=== PATIENT | female | born 1955 | race Caucasian/White ===

== ENCOUNTER → 2017-06-27 | Outpatient (CLI) | payer OTHER ==
--- NOTE | 2017-06-30 15:30 | Diagnostic Imaging Report ---
EXAMINATION: Bilateral screening mammogram 2D views with tomosynthesis. The current study was also evaluated with a Computer Aided Detection (CAD) system. INDICATION: Screening. PERSONAL HISTORY: No current complaints stated on the questionnaire. COMPARISON: 06/14/2016. FINDINGS: The breasts are composed of scattered fibroglandular densities. There is no mass, architectural distortion, or suspicious cluster of calcifications seen. Allowing for technique and positional differences, no suspicious change is seen. IMPRESSION: No significant change. ACR BI-RADS Category 2: Benign findings. Result letter will be mailed to the patient. Note: At least 10% of breast cancer is not imaged by mammography. Dictated by: Dictated on workstation # [id number]
== END ==
LOC: RAD 09:57
DX: Z12.31 Encounter for screening mammogram for malignant neoplasm of breast (principal)
CPT/HCPCS: 77067

== ENCOUNTER → 2018-07-13 | Outpatient (CLI) | payer OTHER ==
--- NOTE | 2018-07-13 13:00 | Diagnostic Imaging Report ---
INDICATION: Screening. TECHNIQUE: The current study was also evaluated with a Computer Aided Detection (CAD) system. 3D tomosynthesis was also performed and reviewed. COMPARISON: 06/27/2017 back through 05/06/2012. FINDINGS: There are scattered fibroglandular densities bilaterally. There is no dominant mass, spiculated lesion, or suspicious calcification identified. The skin, nipples, and axillae are unremarkable. IMPRESSION: Negative. ACR BI-RADS Category 1: Negative. Result letter will be mailed to the patient. Note: At least 10% of breast cancer is not imaged by mammography. Dictated by: Dictated on workstation # [id number]
== END ==
LOC: RAD 07:50
DX: Z12.31 Encounter for screening mammogram for malignant neoplasm of breast (principal)
CPT/HCPCS: 77067

== ENCOUNTER → 2019-07-21 | Outpatient (CLI) | payer OTHER ==
--- NOTE | 2019-07-21 10:55 | Diagnostic Imaging Report ---
INDICATION: Routine screening. COMPARISON: 07/13/2018 and 06/27/2017. TECHNIQUE: 2D and 3D bilateral screening mammography was performed with CAD. FINDINGS: Scattered fibroglandular densities are identified bilaterally. The parenchymal pattern is stable. No mass or malignant appearing microcalcifications are seen. The axillae are unremarkable. IMPRESSION: No mammographic features suspicious for malignancy are identified. ACR BI-RADS Category 1: Negative. Result letter will be mailed to the patient. Note: At least 10% of breast cancer is not imaged by mammography. Dictated by: Dictated on workstation # [id number]
== END ==
LOC: RAD 09:37
PROVIDERS: ATTEND Nurse Practitioner Family
DX: Z12.31 Encounter for screening mammogram for malignant neoplasm of breast (principal)
CPT/HCPCS: 77067

== ENCOUNTER → 2020-08-11 | Outpatient (CLI) | payer MEDICARE, OTHER ==
--- NOTE | 2020-08-11 11:32 | Diagnostic Imaging Report ---
INDICATION: Routine screening. Comparison is made to prior mammogram 07/21/2019 and 07/13/2018. 2-D and 3-D bilateral screening mammography was performed with CAD. Both breasts are heterogeneously dense, limiting the sensitivity of mammography. The parenchymal pattern is stable. No mass or malignant-appearing microcalcifications are seen. Axillae are unremarkable. IMPRESSION: BI-RADS Category 1 No mammographic features suspicious for malignancy are identified. ACR BI-RADS Category 1: Negative. Result letter will be mailed to the patient. Note: At least 10% of breast cancer is not imaged by mammography. Dictated by: Dictated on workstation # [id number]
== END ==
LOC: RAD 08:11
DX: Z12.31 Encounter for screening mammogram for malignant neoplasm of breast (principal)
CPT/HCPCS: 77063; 77067

== ENCOUNTER → 2021-08-27 | Outpatient (CLI) | payer MEDICARE, OTHER ==
--- NOTE | 2021-08-27 09:03 | Diagnostic Imaging Report ---
INDICATION: Routine screening. Comparison is made prior mammogram from 08/11/2020 and 07/21/2019. 2-D and 3-D bilateral screening mammography was performed with CAD. Both breasts are heterogeneously dense, limiting the sensitivity of mammography. A slightly nodular density in the inferior retroareolar left breast appears more prominent on today's study. Additional views are recommended. The right breast is unremarkable. No malignant-appearing microcalcifications are seen. Axillae are unremarkable. IMPRESSION: Left breast density. Additional views are recommended for further evaluation. BI-RADS Category 0 ACR BI-RADS Category 0: Incomplete. (Needs additional imaging evaluation). Result letter will be mailed to the patient. Note: At least 10% of breast cancer is not imaged by mammography. Dictated by: Dictated on workstation # [id number]
== END ==
LOC: RAD 08:15
DX: Z12.31 Encounter for screening mammogram for malignant neoplasm of breast (principal)
CPT/HCPCS: 77063; 77067

== ENCOUNTER → 2021-09-04 | Outpatient (CLI) | payer MEDICARE, OTHER ==
--- NOTE | 2021-09-04 13:32 | Diagnostic Imaging Report ---
EXAMINATION: Ultrasound left breast limited. INDICATION: Abnormal mammogram. FINDINGS: The recent screening mammogram performed on 08/27/2021 noted a slightly nodular density in the inferior retroareolar region of the left breast. The diagnostic mammogram performed prior to the study failed to show any sign of malignancy in this area. On this exam, however, there is a small 6 x 5 x 3 mm avascular hypoechoic lesion in the retroareolar region of the left breast. I suspect that this corresponds to the finding on the mammogram and this may well represent a small slightly complicated cyst. I would recommend that a short-term (6 month) followup mammogram and ultrasound exam of the left breast be obtained for continued evaluation. IMPRESSION: The small nodular density seen on the screening mammogram is felt to be most likely related to a small complicated cyst. Recommendations as above. ACR BI-RADS Category 3: Probably benign findings. Dictated by: Dictated on workstation # [id number]
--- NOTE | 2021-09-04 15:26 | Diagnostic Imaging Report ---
EXAMINATION: Diagnostic left mammogram with CAD. INDICATION: Abnormal screening mammogram. FINDINGS: The recent screening mammogram performed on 08/27/2021 noted a small nodular density in the inferior retroareolar region of the left breast. Compression views of this area show that the area in question is not as conspicuous as on the screening mammogram. This finding may be secondary to fibroglandular tissue alone. Even so, the possibility of an underlying abnormality should still be considered. Ultrasound would be recommended for further study. IMPRESSION: Ultrasound would be recommended for further evaluation of the left breast. ACR BI-RADS Category 0: Incomplete. (Needs additional imaging evaluation). Result letter will be mailed to the patient. Note: At least 10% of breast cancer is not imaged by mammography. Dictated by: Dictated on workstation # [id number]
== END ==
LOC: RAD 12:30
DX: R92.8 Other abnormal and inconclusive findings on diagnostic imaging of breast (principal); Z85.3 Personal history of malignant neoplasm of breast
CPT/HCPCS: 76642; 77065; G0279

== ENCOUNTER → 2022-02-06 | Outpatient (CLI) | payer MEDICARE, OTHER ==
--- NOTE | 2022-02-06 09:33 | Diagnostic Imaging Report ---
Indication: Six-month follow-up left breast nodule. Correlation is made with prior mammogram from 08/27/2021 and 08/11/2020. Unilateral left 2-D and 3-D diagnostic mammography was performed with CAD. CAD is utilized. The current study was also evaluated with a Computer Aided Detection (CAD) system. Scattered fibro-glandular densities are identified in the left breast. The nodular density in the lower left breast appears less prominent on today's study. This was shown by ultrasound to represent a cyst. No new masses are seen. No malignant-appearing microcalcifications are identified. Left axilla is unremarkable. IMPRESSION: BI-RADS 0 Nodular density noted previously appears much less prominent on today's study, likely diminution of a cyst. Even so, sonographic follow-up is recommended and will be performed today. ACR BI-RADS Category 0: Incomplete. (Needs additional imaging evaluation). Result letter will be mailed to the patient. Note: At least 10% of breast cancer is not imaged by mammography. Dictated by: Dictated on workstation # [id number]
--- NOTE | 2022-02-06 10:39 | Diagnostic Imaging Report ---
INDICATION: Left breast nodule. COMPARISON: Correlation is made with the diagnostic mammogram from earlier this same day as well as a prior left breast ultrasound from 09/04/2021. FINDINGS: Sonographic interrogation of the retroareolar left breast was performed. The previously noted ovoid, hypoechoic avascular echogenicity is stable at 6 mm x 6 mm x 2 mm compared with 6 mm x 5 mm x 3 mm on the prior exam. No new mass is detected. IMPRESSION: Stable hypoechoic nodule in the retroareolar left breast. An additional followup in 6 months is recommended to show continued stability. ACR BI-RADS Category 3: Probably benign findings. Dictated by: Dictated on workstation # [id number]
== END ==
LOC: RAD 09:15
DX: N63.20 Unspecified lump in the left breast, unspecified quadrant (principal); Z85.3 Personal history of malignant neoplasm of breast
CPT/HCPCS: 76642; 77065; G0279

== ENCOUNTER → 2022-09-03 | Outpatient (CLI) | payer MEDICARE, OTHER ==
--- NOTE | 2022-09-03 10:07 | Diagnostic Imaging Report ---
Left breast ultrasound Limited. INDICATION: Follow-up exam The previous left breast ultrasound exam performed on 02/06/2022 noted a stable hypoechoic nodule in the retroareolar region of the left breast. On the diagnostic mammogram performed prior to this study the area in question actually seem to have decreased in size. On this exam the hypoechoic lesion has in fact become smaller. This area now measures 0.1 x 0.2 x 0.5 cm as opposed to 0.6 x 0.2 x 0.6 cm. I do suspect that this is a benign process. Even so, it may prove worthwhile to reevaluate this area by ultrasound when the patient has her annual mammogram in February 2023. No other abnormality is identified. IMPRESSION: The hypoechoic lesion seen previously has decreased in size and is most likely a benign process. Recommendations as above. ACR BI-RADS Category 3: Probably benign findings. Dictated by: Dictated on workstation # [id number]
--- NOTE | 2022-09-04 08:48 | Diagnostic Imaging Report ---
EXAMINATION: 3D bilateral diagnostic mammogram with CAD. INDICATION: Followup exam. COMPARISON: This study was compared to the prior exams of 02/06/2022, 08/27/2021, 08/11/2020, and 07/21/2019. PERSONAL HISTORY: At this time, there are no current complaints. FINDINGS: There are scattered fibroglandular densities in both breasts which could obscure a lesion. The previous exam of 02/06/2022 did note a small nodular density in the left retroareolar region. The ultrasound examination of this area suggests that this was a benign hypoechoic nodule. On this exam, the nodular density in question is less conspicuous. A repeat ultrasound exam is pending for further study. The overall appearance of the breasts has not changed significantly otherwise. There is no primary or secondary sign of malignancy noted. IMPRESSION: 1. The small nodular density in the retroareolar region of the left breast seen previously is not as conspicuous on this study. Ultrasound is pending for further study. 2. There is no primary or secondary sign of malignancy noted otherwise. ACR BI-RADS Category 0: Incomplete. (Needs additional imaging evaluation). Result letter will be mailed to the patient. Note: At least 10% of breast cancer is not imaged by mammography. Dictated by: Dictated on workstation # [id number]
== END ==
LOC: RAD 08:32
PROVIDERS: ATTEND Internal Medicine
DX: R92.2 Inconclusive mammogram (principal)
CPT/HCPCS: 76642; 77066; G0279; 77062

== ENCOUNTER → 2023-03-19 | Outpatient (CLI) | payer MEDICARE, OTHER ==
--- NOTE | 2023-03-19 11:18 | Diagnostic Imaging Report ---
Indication: 6 month follow-up left breast nodule. Correlation is made with prior ultrasound from 09/03/2022. Sonographic interrogation retroareolar left breast was performed. Previously noted hypoechoic nodule is no longer visualized. No sonographic abnormality is detected. No solid or cystic mass is detected. IMPRESSION: BI-RADS Category 1 Previously noted tiny hypoechoic nodule is no longer present. No new abnormality is identified. The patient may return to routine annual screening mammography. ACR BI-RADS Category 1: Negative. Dictated by: Dictated on workstation # [id number]
== END ==
LOC: RAD 09:40
PROVIDERS: ATTEND Internal Medicine
DX: N63.20 Unspecified lump in the left breast, unspecified quadrant (principal)

== ENCOUNTER → 2023-09-09 | Outpatient (CLI) | payer MEDICARE, OTHER ==
--- NOTE | 2023-09-09 15:46 | Diagnostic Imaging Report ---
EXAMINATION: 3D bilateral screening mammogram with CAD. INDICATION: Screening. COMPARISON: This study was compared to the prior exams of 09/03/2022, 08/27/2021, and 08/11/2020. PERSONAL HISTORY: At this time, there are no current complaints. FINDINGS: There are scattered areas of fibroglandular density. Overall, there does not appear to have been any significant change when compared to the prior exam. There is no primary or secondary sign of malignancy noted. IMPRESSION: There is no radiographic evidence for malignancy. ACR BI-RADS Category 1: Negative. Result letter will be mailed to the patient. Note: At least 10% of breast cancer is not imaged by mammography. Dictated by: Dictated on workstation # [id number]
--- NOTE | 2023-09-11 13:50 | Diagnostic Imaging Report ---
INDICATION: Postmenopausal screening COMPARISON: None FINDINGS: AP Spine L1-L4: [BMD (g/cm2): 0.839] [T-Score: -3.0] [Z-Score: -1.2] [BMD Previous: NA] [BMD % Change: NA] LT Hip Neck: [BMD (g/cm2): 0.681] [T-Score: -2.9] [Z-Score: -0.9] LT Hip Total: [BMD (g/cm2):0.708] [T-Score:-2.4] [Z-Score: -0.9] [BMD Previous: NA] [BMD % Change: NA] RT Hip Neck: [BMD (g/cm2):0.691] [T-Score:-2.5] [Z-Score:-0.8] RT Hip Total: [BMD (g/cm2):0.675] [T-score:-2.6] [Z-Score:-1.2] [BMD Previous:NA] [BMD % Change:NA] *Indicates significant change from prior examination based on 95% confidence level. World Health Organization criteria for BMD interpretation classify patients as Normal (T-score at or above -1.0), Osteopenic (T-score between -1.0 and -2.5) or Osteoporotic (T-score at or below -2.5). LIMITATIONS AND MODIFICATION: None. FRACTURE RISK (FRAX SCORE): The ten year probability of (%): Major Osteoporotic Fracture: [14.0] Hip Fracture: [3.6] IMPRESSION: 1. Osteoporosis. 2. Baseline examination. 3. See below National Osteoporosis Foundation guidelines on when to potentially initiate pharmacologic therapy. Based on the National Osteoporosis Foundation Guidelines, pharmacologic treatment should be initiated in any of the following, unless clinical conditions suggest otherwise: * Any patient with prior fragility fracture of the hip or vertebrae. A spine fracture indicates 5X risk for subsequent spine fracture and 2X risk for subsequent hip fracture. * Osteoporosis (T-score <-2.5). * Postmenopausal women and men age 50 and older with low bone mass/osteopenia (T-score between -1.0 and -2.5) by DXA and 10-year major osteoporotic fracture greater than 20% or a 10-year probability of hip fracture greater than 3%. These fracture risks are supplied above in the FRAX score, if applicable. * Clinician judgement and/or patient preferences may indicate treatment for people with 10-year fracture probabilities above or below these levels. Dictated by: Dictated on workstation # [id number]
== END ==
LOC: RAD 08:07
PROVIDERS: ATTEND Internal Medicine
DX: Z12.31 Encounter for screening mammogram for malignant neoplasm of breast (principal)
CPT/HCPCS: 77063; 77067; 77080